=== PATIENT | female | born 1965 | race Caucasian/White ===

== ENCOUNTER 2018-10-31 14:52 | Observation (INO) | payer BC ==
[~2018-10-31] VITALS: Ht 162.6 cm; Wt 61.2 kg
[2018-10-31 15:24] LABS: BASOPHILS ABSOLUTE AUTO 0.05 K/mm3 (0.00-0.23); BASOPHILS PERCENT AUTO 1 % (0-2); EOSINOPHILS ABSOLUTE AUTO 0.08 K/mm3 (0.00-0.68); EOSINOPHILS PERCENT AUTO 1 % (0-6); Hematocrit 41.4 % (33.0-51.0); Hemoglobin 13.8 g/dL (11.5-16.0); IMMATURE GRAN ABSOLUTE AUTO 0.02 K/mm3 (0.00-0.10); IMMATURE GRAN PERCENT AUTO 0 % (0-1); LYMPHOCYTES PERCENT AUTO 28 % (21-46); MONOCYTES ABSOLUTE AUTO 0.64 K/mm3 (0.16-1.47); MONOCYTES PERCENT AUTO 8 % (4-13); Mean Corpuscular HGB 28.8 pg (26.0-34.0); Mean Corpuscular HGB Conc 33.3 g/dL (31.5-36.5); Mean Corpuscular Volume 86 fL (80-100); Mean Platelet Volume 10.4 fL (9.1-12.4); NEUTROPHILS ABSOLUTE AUTO 4.76 K/mm3 (1.96-9.15); NEUTROPHILS PERCENT AUTO 61 % (41-73); Platelet Count 226 K/mm3 (150-400); RDW Standard Deviation 38.4 fL (35.1-46.3); Red Blood Cell Count 4.79 M/mm3 (3.80-5.20); White Blood Cell Count 7.75 K/mm3 (4.00-11.30)
[2018-10-31 15:38] LABS: Alanine Aminotransfer (ALT/SGP 24 U/L (12-78); Albumin, Blood 4.1 g/dL (3.4-5.0); Albumin/Globulin Ratio 1.2 (0.8-1.8); Alk Phos 93 U/L (50-136); Anion Gap 6 mmol/L (6-16); Aspartate Aminotrans (AST/SGOT 18 U/L (12-37); Bilirubin, Total 0.3 mg/dL (0.1-1.0); Blood Urea Nitrogen 21 mg/dL (8-24); Bun/Creatinine Ratio 30.3 (12.0-20.0); CO2, Blood 27 mmol/L (21-32); Calcium, Blood 9.4 mg/dL (8.5-10.1); Chloride, Blood 108 mmol/L (98-108); Creatinine, Blood 0.69 mg/dL (0.40-1.00); Globulin, Blood 3.5 g/dL (2.2-4.0); Glomerular Filtration Rate >60 (60-); Glucose, Blood 126 mg/dL (70-99); Potassium, Blood 3.7 mmol/L (3.5-5.5); Sodium, Blood 141 mmol/L (136-145); Total Protein, Blood 7.6 g/dL (6.4-8.2); Troponin I <0.015 ng/mL (0.000-0.040)
[2018-10-31] MEDS ORDERED: SLEEPING PILL (19:42)
[2018-10-31] MEDS ORDERED: MIGRAINE (19:42)
[2018-10-31] MEDS ORDERED: TRAZ50 PO (20:28)
[2018-10-31] MEDS ORDERED: RIZATRIPTAN10 MG PO (20:28)
--- NOTE | 2018-11-01 04:20 | NUR ---
SHIFT SUMMARY PT ADMITTED FOR OBSERVATION. SHE ARRIVED TO THE ED WITH CHEST AND BACK PAIN ALONG WITH SOME WEAKNESS IN THE ARMS, NAUSEA, AND SOB PER REPORT. SHE IS A FULL CODE AND ON A REGULAR DIET. SHE HAS AN IV IN THE JASON. SHE HAD NO REPORTS OF PAIN THROUGHOUT THE NIGHT BUT DID REPORT SOME NAUSEA WHICH WAS TREATED WITH PHENERGAN PER ORDER. SHE HAS NS RUNNING PER ORDER WELL AND IS ON TELE. PT WAS WEARING SCDS BUT THEN REFUSED DURING THE NIGHT AND TOOK THEM OFF. SHE IS AMBULATORY. WILL CONTINUE TO MONITOR.
[2018-11-01 05:51] LABS: BASOPHILS ABSOLUTE AUTO 0.05 K/mm3 (0.00-0.23); BASOPHILS PERCENT AUTO 0 % (0-2); EOSINOPHILS ABSOLUTE AUTO 0.01 K/mm3 (0.00-0.68); EOSINOPHILS PERCENT AUTO 0 % (0-6); Hematocrit 41.6 % (33.0-51.0); Hemoglobin 13.9 g/dL (11.5-16.0); IMMATURE GRAN ABSOLUTE AUTO 0.05 K/mm3 (0.00-0.10); IMMATURE GRAN PERCENT AUTO 0 % (0-1); LYMPHOCYTES ABSOLUTE AUTO 1.76 K/mm3 (0.84-5.20); LYMPHOCYTES PERCENT AUTO 13 % (21-46); MONOCYTES ABSOLUTE AUTO 1.06 K/mm3 (0.16-1.47); MONOCYTES PERCENT AUTO 8 % (4-13); Mean Corpuscular HGB 28.4 pg (26.0-34.0); Mean Corpuscular HGB Conc 33.4 g/dL (31.5-36.5); Mean Corpuscular Volume 85 fL (80-100); Mean Platelet Volume 10.4 fL (9.1-12.4); NEUTROPHILS ABSOLUTE AUTO 10.94 K/mm3 (1.96-9.15); NEUTROPHILS PERCENT AUTO 79 % (41-73); Platelet Count 214 K/mm3 (150-400); RDW Coefficient Variation 12.1 % (11.7-14.2); Red Blood Cell Count 4.89 M/mm3 (3.80-5.20); White Blood Cell Count 13.87 K/mm3 (4.00-11.30)
[2018-11-01] MEDS ORDERED: ASPI81CH PO (12:20)
[2018-11-01] MEDS ORDERED: DICL25ER PO (12:22)
[2018-11-01] MEDS ORDERED: ONDA4ODT MM (12:23)
[2018-11-01] MEDS ORDERED: METO25 PO (12:23)
--- NOTE | 2018-11-01 12:55 | NUR ---
PATIENT GIVEN VERBAL AND WRITTEN DISCHARGE INSTRUCTIONS. ALL QUESTIONS ANSWERED. [facility] AND [facility]LE DISCONTINU[facility]. PATIENT IN ROOM WAITING FOR HER MOM TO PICK HER UP FOR DISCHARGE TO HOME.
== END 2018-11-01 13:01 | disposition home or self-care (01) ==
LOC: ER 14:52 → MEDS 14:53 → ENPENDDIS 11-01 11:00 → MEDS 11-01 13:01
PROVIDERS: Emergency Medicine; Nurse Practitioner Acute Care; ADMIT Hospitalist
DX: R07.89 Other chest pain (principal); M54.6 Pain in thoracic spine; M19.90 Unspecified osteoarthritis, unspecified site; G43.909 Migraine, unspecified, not intractable, without status migrainosus; G47.00 Insomnia, unspecified; I10 Essential (primary) hypertension; E78.5 Hyperlipidemia, unspecified; Z79.899 Other long term (current) drug therapy; Z88.0 Allergy status to penicillin; Z88.5 Allergy status to narcotic agent; Z79.82 Long term (current) use of aspirin
CPT/HCPCS: 36415; 71046; 71275; 74175; 80053; 84145; 84484; 85025; 85379; 93005; 93010; 96361; 96374-59; 96375; 96375-59; 96376; 96376-59; 99285-25; G0378; J1170; J2405; J2550; J3010; J7030; Q9967

== ENCOUNTER → 2019-06-26 | Outpatient (CLI) | payer BC ==
[~2019-06-26] MED LIST: ASPI81CH PO; DICL25ER PO; METO25 PO; MIGRAINE; ONDA4ODT MM; RIZATRIPTAN10 MG PO; SLEEPING PILL; TRAZ50 PO
== END | disposition home or self-care (01) ==
LOC: LAB SHORT 16:25 → LAB EV 16:25
DX: Z03.818 Encounter for observation for suspected exposure to other biological agents ruled out (principal)
CPT/HCPCS: U0003

== ENCOUNTER 2021-07-13 16:30 | Emergency (ER) | payer BC ==
[~2021-07-13] VITALS: Ht 162.6 cm; Wt 70.3 kg
== END 2021-07-13 20:57 | disposition home or self-care (01) ==
LOC: ER 16:30
DX: S09.90XA Unspecified injury of head, initial encounter (principal); W22.8XXA Striking against or struck by other objects, initial encounter; Z79.82 Long term (current) use of aspirin; Z79.899 Other long term (current) drug therapy; Z88.0 Allergy status to penicillin; Z88.5 Allergy status to narcotic agent
CPT/HCPCS: 70450; A9270

== ENCOUNTER 2022-03-05 06:42 | Day surgery (SDC) | payer OTHER ==
[~2022-03-05] VITALS: Ht 162.6 cm; Wt 67.9 kg
[2022-03-05] MEDS ORDERED: GABA300 (07:22)
[2022-03-05] MEDS ORDERED: Flonase 0.05% N16 GM (07:23)
[2022-03-05] MEDS ORDERED: OMEP20ER (07:23)
[2022-03-05] MEDS ORDERED: Inderal60 MG (07:23)
--- NOTE | 2022-03-05 07:49 | NUR ---
03/05/22 0749 MICHAEL NAJERA WARM PACK FOR HEAD
== END 2022-03-05 08:59 | disposition home or self-care (01) ==
LOC: ORSCSDS 06:42
PROVIDERS: Internal Medicine Gastroenterology
PROC: 0DBN8ZX Excision of Sigmoid Colon, Via Natural or Artificial Opening Endoscopic, Diagnostic (ICD-10-PCS; principal; 2022-03-05 08:00)
DX: R10.13 Epigastric pain (principal); K92.1 Melena; D12.5 Benign neoplasm of sigmoid colon; K57.50 Diverticulosis of both small and large intestine without perforation or abscess without bleeding; D50.9 Iron deficiency anemia, unspecified; K21.9 Gastro-esophageal reflux disease without esophagitis; Z79.899 Other long term (current) drug therapy
CPT/HCPCS: 82947; 88305; J2405; J2704; J7120

== ENCOUNTER → 2023-12-17 | Outpatient (CLI) | payer OTHER ==
[~2023-12-17] MED LIST changes: +Flonase 0.05% N16 GM; +GABA300; +Inderal60 MG; +OMEP20ER
== END ==
LOC: LAB SHORT 08:30 → LAB 08:30
DX: R11.0 Nausea (principal); R10.30 Lower abdominal pain, unspecified
CPT/HCPCS: 87338

== ENCOUNTER 2024-09-06 12:16 | Day surgery (SDC) | payer BC ==
[~2024-09-06] VITALS: Ht 162.6 cm; Wt 64.2 kg
[~2024-09-06 12:16] MED LIST changes: +Balanced Salt Epinephrine Irrigation Solution 500 mL IR SCH; +Moxifloxacin HCL 0.5 MG/0.1 ML 0.4MLSYR RIGHTEYE SCH; +NS 500 ML IV ONE; +PHENYLEPHRINE\\TROPICAMIDE\\TETRACAINE OPHTHALMIC DILATING SOLN RIGHTEYE PRN; +Povidone-Iodine 450 DROP/30 ML Solution ONE; +Povidone-Iodine 450 DROP/30 ML Solution RIGHTEYE SCH; +Tetracaine HCl/Pf 0.5% Opth Soln 4 ml ONE; +Triamcinolone Inj Susp 40 MG / ML 1ML Vial INJ SCH; +Triamcinolone Inj Susp 40 MG / ML 1ML Vial ONE
[2024-09-06] MEDS ORDERED: TIZANIDINE HCL213 PO (13:18)
[2024-09-06] MEDS ORDERED: ESTRADIOL (13:19)
[2024-09-06] MEDS ORDERED: QULIPTA60 MG PO (13:20)
[2024-09-06] MEDS ORDERED: ZOLOFT50 MG PO (13:20)
[2024-09-06] MEDS ORDERED: NS 500 ML IV ONE (13:23)
--- NOTE | 2024-09-06 13:31 | NUR ---
09/06/24 1331 Elizabeth Rod 1318: TETRACAINE PER ORDERS 1319: PLEDGET PER ORDERS
[2024-09-06] MEDS ORDERED: Midazolam HCl 1MG / ML 2ML Vial ONE (13:45)
[2024-09-06 14:14] VITALS: BP 137/81
--- NOTE | 2024-09-06 14:43 | NUR ---
09/06/24 1443 CHANDNI ONEILL VERY PLEASANT PT. NO ISSUES NOTED.
== END 2024-09-06 14:37 | disposition home or self-care (01) ==
LOC: ORSCSDS 12:16
PROVIDERS: Ophthalmology
PROC: 08RJ3JZ Replacement of Right Lens with Synthetic Substitute, Percutaneous Approach (ICD-10-PCS; principal; 2024-09-06 14:00)
DX: H25.813 Combined forms of age-related cataract, bilateral (principal); Z79.899 Other long term (current) drug therapy
CPT/HCPCS: J2250; J2704; J3301; J7040; V2632

== ENCOUNTER → 2025-01-04 | Outpatient (CLI) | payer BC ==
[~2025-01-04] MED LIST changes: -Balanced Salt Epinephrine Irrigation Solution 500 mL IR SCH; +ESTRADIOL; -Moxifloxacin HCL 0.5 MG/0.1 ML 0.4MLSYR RIGHTEYE SCH; -NS 500 ML IV ONE; -PHENYLEPHRINE\\TROPICAMIDE\\TETRACAINE OPHTHALMIC DILATING SOLN RIGHTEYE PRN; -Povidone-Iodine 450 DROP/30 ML Solution ONE; -Povidone-Iodine 450 DROP/30 ML Solution RIGHTEYE SCH; +QULIPTA60 MG PO; +TIZANIDINE HCL213 PO; -Tetracaine HCl/Pf 0.5% Opth Soln 4 ml ONE; -Triamcinolone Inj Susp 40 MG / ML 1ML Vial INJ SCH; -Triamcinolone Inj Susp 40 MG / ML 1ML Vial ONE; +ZOLOFT50 MG PO
[2025-01-04 15:20] LABS: BASOPHILS ABSOLUTE AUTO 0.05 K/mm3 (0.00-0.23); BASOPHILS PERCENT AUTO 1 % (0-2); EOSINOPHILS ABSOLUTE AUTO 0.11 K/mm3 (0.00-0.68); EOSINOPHILS PERCENT AUTO 2 % (0-6); Hematocrit 42.7 % (33.0-51.0); Hemoglobin 14.6 g/dL (11.5-16.0); IMMATURE GRAN ABSOLUTE AUTO 0.02 K/mm3 (0.00-0.10); IMMATURE GRAN PERCENT AUTO 0 % (0-1); LYMPHOCYTES ABSOLUTE AUTO 2.17 K/mm3 (0.84-5.20); LYMPHOCYTES PERCENT AUTO 31 % (21-46); MONOCYTES ABSOLUTE AUTO 0.57 K/mm3 (0.16-1.47); MONOCYTES PERCENT AUTO 8 % (4-13); Mean Corpuscular HGB Conc 34.2 g/dL (31.5-36.5); Mean Corpuscular Volume 85 fL (80-100); NEUTROPHILS ABSOLUTE AUTO 4.04 K/mm3 (1.96-9.15); NEUTROPHILS PERCENT AUTO 58 % (41-73); NRBC ABSOLUTE 0.00 K/mm3 (0.00-0.02); NRBC Auto 0.0 /100 WBC (0.0-0.2); Platelet Count 227 K/mm3 (150-400); RDW Coefficient Variation 12.1 % (11.7-14.2); RDW Standard Deviation 36.9 fL (35.1-46.3)
[2025-01-04 15:33] LABS: C-REACTIVE PROTEIN, EXT RANGE <0.290 mg/dL (0.000-0.300)
[2025-01-04 15:34] LABS: Alanine Aminotransfer (ALT/SGP 29 U/L (12-78); Albumin, Blood 4.0 g/dL (3.4-5.0); Albumin/Globulin Ratio 1.2 (0.8-1.8); Anion Gap 9 mmol/L (3-11); Aspartate Aminotrans (AST/SGOT 17 U/L (12-37); Bilirubin, Total 0.8 mg/dL (0.1-1.0); Blood Urea Nitrogen 14 mg/dL (8-24); CO2, Blood 24 mmol/L (21-32); Calcium, Blood 8.9 mg/dL (8.5-10.1); Chloride, Blood 106 mmol/L (98-108); Creatinine, Blood 0.64 mg/dL (0.40-1.00); Ferritin, Serum 106 ng/mL (8-252); Globulin, Blood 3.4 g/dL (2.2-4.0); Glucose, Blood 132 mg/dL (70-99); Potassium, Blood 3.4 mmol/L (3.5-5.5); Sodium, Blood 136 mmol/L (136-145); Total Iron Binding Capacity 358 ug/dL (250-450); Total Protein, Blood 7.4 g/dL (6.4-8.2)
[2025-01-06 18:12] LABS: ANTI-NUCLEAR AB ANA,IGG ELISA Detected (None Detected)
[2025-01-09 14:28] LABS: ANTINUCLEAR AB (ANA),HEP-2,IGG Detected (<1:80)
[2025-01-09 14:29] LABS: ANA PATTERN 2 Homogeneous; ANA TITER 2 1:160
[2025-01-10 13:02] LABS: SMITH/RNP (ENA) AB, IGG 3 Units (0-19)
[2025-01-11 09:47] LABS: JO-1 HISTIDYL-TRNA SYNTHET,IGG 0 AU/mL (0-40); SCLERODERMA (SCL-70) AB,IGG 8 AU/mL (0-40); SMITH (ENA) ANTIBODY, IGG 1 AU/mL (0-40); SSA-52 (RO52) (ENA) AB, IGG 2 AU/mL (0-40); SSA-60 (RO60) (ENA) AB, IGG 0 AU/mL (0-40); SSB (LA) (ENA) ANTIBODY, IGG 0 AU/mL (0-40)
[2025-01-12 16:37] LABS: DOUBLE-STRANDED DNA IGG ELISA 1 IU (0-24)
== END ==
LOC: LAB 12:50 → LAB SHORT 12:50
PROVIDERS: Nurse Practitioner Family
DX: G43.009 Migraine without aura, not intractable, without status migrainosus (principal)
CPT/HCPCS: 80053; 82728; 83540; 83550; 85025; 85651; 86038; 86039; 86140; 86225; 86235; 86430